=== PATIENT | female | born 1960 | race Caucasian/White ===

== ENCOUNTER 2017-11-21 18:02 | Inpatient (IN) | payer BC, OTHER ==
[~2017-11-21] VITALS: Ht 165.1 cm; Wt 93.9 kg
[2017-11-21] MEDS ORDERED: SODIUM CHLORIDE FLUSH 10ML SYR IVF ONE (18:30)
[2017-11-21] MEDS ORDERED: PLEASE ENTER ALLERGIES MC SCH (18:30)
[2017-11-21] MEDS ORDERED: SODIUM CHLORIDE 0.9% 1,000ML IVBOLUS ONE (18:30)
[2017-11-21 18:32] LABS: MEAN CORPUSCULAR HEMOGLOBIN 31.1 pg (27.0-34.8); MEAN CORPUSCULAR HGB CONC 34.4 g/dL (32.4-35.8); MEAN CORPUSCULAR VOLUME 90.2 fL (80-100); PLATELET COUNT 276 x10^3/uL (130-400); RED CELL DISTRIBUTION WIDTH 12.4 % (9.6-15.2)
[2017-11-21 18:45] LABS: ALBUMIN 3.6 g/dL (3.4-5.0); ANION GAP 13 mmol/L (5-15); CALCIUM 8.8 mg/dL (8.5-10.1); CHLORIDE 96 mmol/L (98-107); CREATININE 1.11 mg/dL (0.55-1.02)
[2017-11-21 18:49] LABS: FREE T4 (FREE THYROXINE) 2.78 ng/dL (0.76-1.46); TROPONIN I < 0.015 ng/mL (0.000-0.045)
[2017-11-21] MEDS ORDERED: LORazepam 1MG TABLET PO ONE (19:00)
[2017-11-21 19:02] LABS: MD YES
[2017-11-21 19:05] LABS: BANDS%(MANUAL) 1 % (0-7); LYMPH#(MANUAL) 3.35 x10^3/uL (1-3.4); LYMPHS% (MANUAL) 17 % (22-44); MONOS% (MANUAL) 1 % (2-9); SEG#(MANUAL) 15.96 x10^3/uL (1.8-6.8); SEGS% (MANUAL) 81 % (42-75)
[2017-11-21 19:06] LABS: <PLATELET ESTIMATE> ADEQUATE; <PLT MORPHOLOGY> NORMAL PLT MORPH; <RBC MORPHOLOGY> NORMAL
[2017-11-21] MEDS ORDERED: OMNIPAQUE 350 MG/ML, 100ML BOTTLE ONE (20:08)
[2017-11-21] MEDS ORDERED: LORazepam 1MG TABLET ONE (20:17)
[2017-11-21] MEDS ORDERED: PROPRANOLOL 1 MG/ML, 1ML IVPush ONE ×2 (21:00→21:30)
[2017-11-21] MEDS ORDERED: LIDOCAINE-MPF 1%, 2ML ONE (21:16)
[2017-11-21] MEDS ORDERED: METF500T5 PO (21:20)
[2017-11-21] MEDS ORDERED: LOSA1TAB19 PO (21:20)
[2017-11-21] MEDS ORDERED: LEVO150T PO (21:20)
[2017-11-21 21:22] LABS: HCT (SEDRATE) 44.2 % (34.6-47.8)
[2017-11-21] MEDS ORDERED: morphine SULFATE 10 MG/ML, 1ML IVPush ONE (21:30)
[2017-11-21] MEDS ORDERED: LIDOCAINE 1%, 10ML INFIL ONE (21:30)
[2017-11-21 21:36] LABS: C-REACTIVE PROTEIN, QUANT 2.5 mg/dL (0.02-0.49)
[2017-11-21] MEDS ORDERED: MORPHINE SULFATE 4 MG/ML, 1ML ONE (22:06)
[2017-11-21 22:30] VITALS: BP 130/83
[2017-11-21] MEDS ORDERED: ONDANSETRON 2MG/ML, 2ML IVPush PRN (22:30)
[2017-11-21] MEDS ORDERED: ONDANSETRON ODT 4 MG PO PRN (22:30)
[2017-11-21] MEDS ORDERED: ACETAMINOPHEN 325 MG TABLET PO PRN (22:30)
[2017-11-21] MEDS ORDERED: POLYETHYLENE GLYCOL 17 GM PACKET PO PRN (22:30)
[2017-11-21] MEDS: metFORMIN 500 MG TABLET PO SCH (23:15)
[2017-11-21] MEDS: ENOXAPARIN 40 MG/0.4 ML SQ SCH (23:16)
[2017-11-21] MEDS: SODIUM CHLORIDE 0.9% 1,000 ML IV SCH (23:16)
[2017-11-21 23:23] LABS: TROPONIN I < 0.015 ng/mL (0.000-0.045)
[2017-11-22] MEDS: INSULIN LISPRO 100 UNITS/ML, PEN SQ-INSULIN SCH ×5 (00:03→20:26)
[2017-11-22 01:00] LABS: MICROSCOPIC NOT IND
[2017-11-22] MEDS: OXYcodone/APAP 5/325MG TABLET PO PRN ×5 (01:02→19:42)
[2017-11-22 01:04] LABS: CULTURE INDICATED? NO
[2017-11-22 01:13] LABS: AMPHETAMINE SCREEN, URINE Negative (Negative); BARBITURATE SCREEN, URINE Negative (Negative); BENZODIAZEPINE SCREEN, URINE Negative (Negative); CANNABINOID SCREEN, URINE Negative (Negative); COCAINE SCREEN, URINE Negative (Negative); METHADONE SCREEN, URINE Negative (Negative); OPIATE SCREEN, URINE Positive (Negative)
[2017-11-22 02:00] VITALS: BP 131/79
[2017-11-22 03:48] VITALS: BP 130/83
[2017-11-22 05:54] LABS: BASOPHILS # (AUTO) 0.05 x10^3/uL (0-0.1); BASOPHILS % (AUTO) 0 % (0-1); EOSINOPHILS # (AUTO) 0.07 x10^3/uL (0-0.4); EOSINOPHILS % (AUTO) 0 % (1-7); LYMPHOCYTES # (AUTO) 3.45 x10^3/uL (1-3.4); LYMPHOCYTES % (AUTO) 24 % (22-44); MD NO; MEAN CORPUSCULAR HEMOGLOBIN 31.5 pg (27.0-34.8); MEAN CORPUSCULAR HGB CONC 34.9 g/dL (32.4-35.8); MEAN CORPUSCULAR VOLUME 90.1 fL (80-100); MONOCYTES # (AUTO) 1.34 x10^3/uL (0.2-0.8); MONOCYTES % (AUTO) 9 % (2-9); NEUTROPHILS # (AUTO) 9.75 x10^3/uL (1.8-6.8); NEUTROPHILS % (AUTO) 67 % (42-75); PLATELET COUNT 190 x10^3/uL (130-400); RED BLOOD COUNT 3.99 x10^6/uL (3.82-5.3); RED CELL DISTRIBUTION WIDTH 12.8 % (9.6-15.2)
[2017-11-22 06:06] LABS: ALANINE AMINOTRANSFERASE 18 U/L (12-78); ALBUMIN 2.8 g/dL (3.4-5.0); ANION GAP 10 mmol/L (5-15); CALCIUM 7.4 mg/dL (8.5-10.1); CHLORIDE 101 mmol/L (98-107)
[2017-11-22 06:12] LABS: ALKALINE PHOSPHATASE 76 U/L (45-117); BILIRUBIN,TOTAL 0.6 mg/dL (0.2-1.0); CREATININE 0.52 mg/dL (0.55-1.02); TOTAL PROTEIN 5.9 g/dL (6.4-8.2); TROPONIN I < 0.015 ng/mL (0.000-0.045)
[2017-11-22 08:30] VITALS: BP 132/79
[2017-11-22] MEDS ORDERED: LOSARTAN 50MG TABLET PO SCH (09:00)
[2017-11-22] MEDS ORDERED: HYDROCHLOROTHIAZIDE 12.5 MG CAPSULE PO SCH (09:00)
[2017-11-22] MEDS: POTASSIUM CHLORIDE 20 MEQ TAB.ER.PRT PO SCH ×2 (09:46→16:26)
[2017-11-22] MEDS ORDERED: MAGNESIUM SULFATE PMX 2GM/50ML 50 ML IV ONE (11:30)
[2017-11-22] MEDS: SODIUM CHLORIDE 0.9% 1,000 ML IV SCH (11:41)
[2017-11-22] MEDS: metFORMIN 500 MG TABLET PO SCH ×2 (11:41→20:25)
[2017-11-22 14:45] VITALS: BP 129/74
[2017-11-22 18:49] VITALS: BP 140/93
[2017-11-22] MEDS: LOSARTAN 50MG TABLET PO SCH (20:25)
[2017-11-22] MEDS: ENOXAPARIN 40 MG/0.4 ML SQ SCH (23:09)
[2017-11-23] MEDS: SODIUM CHLORIDE 0.9% 1,000 ML IV SCH ×2 (02:26→14:29)
[2017-11-23 03:35] VITALS: BP 127/84
[2017-11-23 05:16] LABS: BASOPHILS # (AUTO) 0.03 x10^3/uL (0-0.1); BASOPHILS % (AUTO) 0 % (0-1); EOSINOPHILS # (AUTO) 0.04 x10^3/uL (0-0.4); EOSINOPHILS % (AUTO) 0 % (1-7); LYMPHOCYTES # (AUTO) 2.43 x10^3/uL (1-3.4); LYMPHOCYTES % (AUTO) 17 % (22-44); MD NO; MEAN CORPUSCULAR HGB CONC 34.6 g/dL (32.4-35.8); MEAN CORPUSCULAR VOLUME 89.7 fL (80-100); MEAN PLATELET VOLUME 8.8 fL (7.4-10.4); MONOCYTES # (AUTO) 1.19 x10^3/uL (0.2-0.8); MONOCYTES % (AUTO) 9 % (2-9); NEUTROPHILS # (AUTO) 10.24 x10^3/uL (1.8-6.8); NEUTROPHILS % (AUTO) 74 % (42-75); PLATELET COUNT 177 x10^3/uL (130-400); RED BLOOD COUNT 3.82 x10^6/uL (3.82-5.3); RED CELL DISTRIBUTION WIDTH 12.6 % (9.6-15.2)
[2017-11-23 05:53] LABS: ANION GAP 10 mmol/L (5-15); CALCIUM 7.9 mg/dL (8.5-10.1); CHLORIDE 102 mmol/L (98-107); CREATININE 0.43 mg/dL (0.55-1.02)
[2017-11-23 06:52] VITALS: BP 120/78
[2017-11-23] MEDS: metFORMIN 500 MG TABLET PO SCH ×2 (08:31→20:45)
[2017-11-23] MEDS: LOSARTAN 50MG TABLET PO SCH ×2 (08:31→20:45)
[2017-11-23] MEDS: POTASSIUM CHLORIDE 20 MEQ TAB.ER.PRT PO SCH ×2 (08:32→17:06)
[2017-11-23] MEDS: INSULIN LISPRO 100 UNITS/ML, PEN SQ-INSULIN SCH ×4 (08:34→20:47)
[2017-11-23] MEDS: OXYcodone/APAP 5/325MG TABLET PO PRN (10:11)
[2017-11-23 13:43] VITALS: BP 102/68
[2017-11-23 19:47] VITALS: BP 133/81
[2017-11-23] MEDS: ENOXAPARIN 40 MG/0.4 ML SQ SCH (22:36)
[2017-11-24 00:48] VITALS: BP 120/80
[2017-11-24 02:58] LABS: HEMOGLOBIN A1C 8.8 % (4.2-6.3)
[2017-11-24] MEDS: SODIUM CHLORIDE 0.9% 1,000 ML IV SCH ×2 (05:37→17:49)
[2017-11-24 07:06] VITALS: BP 123/83
[2017-11-24] MEDS: LOSARTAN 50MG TABLET PO SCH ×2 (08:14→20:41)
[2017-11-24] MEDS: metFORMIN 500 MG TABLET PO SCH ×2 (08:14→20:41)
[2017-11-24] MEDS: INSULIN LISPRO 100 UNITS/ML, PEN SQ-INSULIN SCH ×4 (08:27→20:43)
[2017-11-24] MEDS ORDERED: KETOROLAC 30 MG/1 ML IVPush PRN (11:00)
[2017-11-24 12:30] VITALS: BP 120/81
[2017-11-24] MEDS: METOPROLOL TARTRATE 50 MG TABLET PO SCH ×2 (14:13→20:41)
[2017-11-24 19:04] VITALS: BP 110/64
[2017-11-24] MEDS: ENOXAPARIN 40 MG/0.4 ML SQ SCH (20:41)
[2017-11-25] VITALS (11 sets, daily range): BP systolic 111–136; BP diastolic 73–86
[2017-11-25] MEDS: METOPROLOL TARTRATE 50 MG TABLET PO SCH ×2 (05:46→18:05)
[2017-11-25] MEDS: INSULIN LISPRO 100 UNITS/ML, PEN SQ-INSULIN SCH ×4 (07:00→21:05)
[2017-11-25] MEDS: metFORMIN 500 MG TABLET PO SCH ×2 (08:06→21:04)
[2017-11-25] MEDS: SODIUM CHLORIDE 0.9% 1,000 ML IV SCH ×2 (08:06→09:00)
[2017-11-25] MEDS: LOSARTAN 50MG TABLET PO SCH ×2 (08:06→21:04)
[2017-11-25] MEDS ORDERED: REGADENOSON 0.4 MG/5 ML SYRINGE ONE (08:32)
[2017-11-25 15:48] LABS: CLOSTRIDIUM DIFFICILE ANTIGEN NEGATIVE; CLOSTRIDIUM DIFFICILE TOXIN NEGATIVE (Negative)
[2017-11-25] MEDS: ENOXAPARIN 40 MG/0.4 ML SQ SCH (21:06)
[2017-11-26 01:42] VITALS: BP 117/76
[2017-11-26 05:34] LABS: BASOPHILS # (AUTO) 0.01 x10^3/uL (0-0.1); BASOPHILS % (AUTO) 0 % (0-1); EOSINOPHILS # (AUTO) 0.16 x10^3/uL (0-0.4); EOSINOPHILS % (AUTO) 3 % (1-7); LYMPHOCYTES # (AUTO) 2.23 x10^3/uL (1-3.4); LYMPHOCYTES % (AUTO) 35 % (22-44); MD NO; MEAN CORPUSCULAR HEMOGLOBIN 30.3 pg (27.0-34.8); MEAN CORPUSCULAR HGB CONC 33.5 g/dL (32.4-35.8); MEAN CORPUSCULAR VOLUME 90.5 fL (80-100); MEAN PLATELET VOLUME 8.5 fL (7.4-10.4); MONOCYTES # (AUTO) 0.93 x10^3/uL (0.2-0.8); MONOCYTES % (AUTO) 15 % (2-9); NEUTROPHILS # (AUTO) 3.09 x10^3/uL (1.8-6.8); NEUTROPHILS % (AUTO) 48 % (42-75); PLATELET COUNT 181 x10^3/uL (130-400); RED BLOOD COUNT 3.16 x10^6/uL (3.82-5.3); RED CELL DISTRIBUTION WIDTH 12.1 % (9.6-15.2)
[2017-11-26 05:43] LABS: ANION GAP 8 mmol/L (5-15); CALCIUM 7.9 mg/dL (8.5-10.1); CHLORIDE 108 mmol/L (98-107); CREATININE 0.51 mg/dL (0.55-1.02)
[2017-11-26 06:30] VITALS: BP 107/74
[2017-11-26] MEDS: METOPROLOL TARTRATE 50 MG TABLET PO SCH ×2 (06:33→16:59)
[2017-11-26] MEDS: SODIUM CHLORIDE 0.9% 1,000 ML IV SCH ×2 (06:36→21:00)
[2017-11-26 07:28] VITALS: BP 95/63
[2017-11-26] MEDS: metFORMIN 500 MG TABLET PO SCH (08:27)
[2017-11-26] MEDS: LOSARTAN 50MG TABLET PO SCH ×2 (08:28→21:27)
[2017-11-26] MEDS: INSULIN LISPRO 100 UNITS/ML, PEN SQ-INSULIN SCH ×4 (08:28→21:28)
[2017-11-26] MEDS ORDERED: TICAGRELOR 90 MG TABLET ONE (13:42)
[2017-11-26] MEDS ORDERED: MIDAZOLAM 1 MG/ML, 5ML ONE (13:42)
[2017-11-26] MEDS ORDERED: LIDOCAINE-MPF 2%, 2ML ONE (13:42)
[2017-11-26] MEDS ORDERED: VERAPAMIL 2.5 MG/ML, 2ML ONE (13:42)
[2017-11-26] MEDS ORDERED: FENTANYL PF 100 MCG/2ML ONE (13:42)
[2017-11-26] MEDS ORDERED: BIVALIRUDIN 250 MG ONE (13:43)
[2017-11-26] MEDS ORDERED: HEPARIN 1,000 UNITS/ML, 10ML ONE (13:43)
[2017-11-26 14:18] VITALS: BP 106/71
[2017-11-26 18:51] VITALS: BP 107/72
[2017-11-26] MEDS ORDERED: ATORVASTATIN 40 MG TABLET PO SCH (21:00)
[2017-11-26] MEDS: ENOXAPARIN 40 MG/0.4 ML SQ SCH (21:27)
[2017-11-27 02:46] VITALS: BP 114/74
[2017-11-27 04:50] VITALS: BP 146/87
[2017-11-27] MEDS: METOPROLOL TARTRATE 50 MG TABLET PO SCH (04:53)
[2017-11-27 05:12] VITALS: BP 159/60
[2017-11-27 05:32] LABS: BASOPHILS # (AUTO) 0.01 x10^3/uL (0-0.1); BASOPHILS % (AUTO) 0 % (0-1); EOSINOPHILS # (AUTO) 0.16 x10^3/uL (0-0.4); EOSINOPHILS % (AUTO) 2 % (1-7); LYMPHOCYTES # (AUTO) 2.65 x10^3/uL (1-3.4); LYMPHOCYTES % (AUTO) 40 % (22-44); MD NO; MEAN CORPUSCULAR HEMOGLOBIN 31.1 pg (27.0-34.8); MEAN CORPUSCULAR HGB CONC 33.8 g/dL (32.4-35.8); MEAN CORPUSCULAR VOLUME 92.3 fL (80-100); MEAN PLATELET VOLUME 8.8 fL (7.4-10.4); MONOCYTES % (AUTO) 10 % (2-9); NEUTROPHILS # (AUTO) 3.18 x10^3/uL (1.8-6.8); NEUTROPHILS % (AUTO) 48 % (42-75); PLATELET COUNT 210 x10^3/uL (130-400); RED BLOOD COUNT 3.23 x10^6/uL (3.82-5.3); RED CELL DISTRIBUTION WIDTH 12.6 % (9.6-15.2)
[2017-11-27 05:44] LABS: ANION GAP 8 mmol/L (5-15); CALCIUM 8.4 mg/dL (8.5-10.1); CHLORIDE 110 mmol/L (98-107)
[2017-11-27 05:57] LABS: CREATININE 0.54 mg/dL (0.55-1.02)
[2017-11-27 05:58] LABS: CHOL/HDL RATIO 4.2; CHOLESTEROL, TOTAL 110 mg/dL (140-239); HDL CHOL % 24 % (28-40); HDL CHOLESTEROL (DIRECT) 26 mg/dL (40-60); LDL CHOLESTEROL,CALCULATED 58 mg/dL (54-169); LDL/HDL RATIO 2.2 (0.5-3.0); THYROID STIMULATING HORMONE < 0.005 mIU/L (0.358-3.740); TRIGLYCERIDES 130 mg/dL (50-200); VLDL CHOLESTEROL 26 mg/dL (0-25)
[2017-11-27 07:05] VITALS: BP 101/67
[2017-11-27] MEDS: INSULIN LISPRO 100 UNITS/ML, PEN SQ-INSULIN SCH ×2 (07:45→11:01)
[2017-11-27] MEDS: LOSARTAN 50MG TABLET PO SCH (09:31)
[2017-11-27] MEDS ORDERED: METO50TA82 PO (13:07)
[2017-11-27] MEDS ORDERED: ACET325T14 PO (13:07)
[2017-11-27] MEDS ORDERED: LOSA50TA2 PO (13:07)
[2017-11-27] MEDS ORDERED: TRAM50TA2 PO (13:07)
[2017-11-27] MEDS ORDERED: POLY17PO5 PO (13:07)
== END 2017-11-27 14:35 | disposition home or self-care (01) | DRG 286 ==
LOC: ED 21:21 → EDIP 21:48 → 5SO 22:32
PROVIDERS: ADMIT Hospitalist; ATTEND Hospitalist
PROC: 0S9D3ZX Drainage of Left Knee Joint, Percutaneous Approach, Diagnostic (ICD-10-PCS; 2017-11-21)
PROC: 4A023N7 Measurement of Cardiac Sampling and Pressure, Left Heart, Percutaneous Approach (ICD-10-PCS; principal; 2017-11-26)
PROC: B2111ZZ Fluoroscopy of Multiple Coronary Arteries using Low Osmolar Contrast (ICD-10-PCS; 2017-11-26)
PROC: B2151ZZ Fluoroscopy of Left Heart using Low Osmolar Contrast (ICD-10-PCS; 2017-11-26)
DX: I20.0 Unstable angina (principal); N17.0 Acute kidney failure with tubular necrosis; E87.1 Hypo-osmolality and hyponatremia; R07.89 Other chest pain; E11.65 Type 2 diabetes mellitus with hyperglycemia; E78.5 Hyperlipidemia, unspecified; E87.6 Hypokalemia; E89.0 Postprocedural hypothyroidism; F17.210 Nicotine dependence, cigarettes, uncomplicated; I11.9 Hypertensive heart disease without heart failure; I44.7 Left bundle-branch block, unspecified; I51.7 Cardiomegaly; Z86.718 Personal history of other venous thrombosis and embolism; Z90.710 Acquired absence of both cervix and uterus; Z90.722 Acquired absence of ovaries, bilateral; M25.462 Effusion, left knee; M17.12 Unilateral primary osteoarthritis, left knee; M11.262 Other chondrocalcinosis, left knee
CPT/HCPCS: 0399T; 20605; 36415; 71045; 71275; 78452; 80048; 80053; 80061; 80307; 81003; 82040; 82945; 82962; 83036; 83615; 83735; 83880; 84100; 84157; 84439; 84443; 84481; 84484; 84550; 84560; 85025; 85651; 85810; 86140; 87040; 87070; 87205; 87324; 89050; 89060; 93005; 93017; 93306; 93458; 96361; 96374; 96375; 96376; 99156; 99285; C1769; C1894; J0583; J1644; J1650; J1885; J2250; J2785; J3010; J3490; Q9967; A9502; C9898; J1800; J1815; J2270; J3475; J7030